=== PATIENT | male | born 1950 ===

== ENCOUNTER 2016-10-19 09:14 | Emergency (ER) | payer OTHER ==
[2016-10-19 09:49] VITALS: PULSE 98; TEMP 98
[2016-10-19 11:08] VITALS: BP 113/67; RESP 18; O2SAT 97
--- NOTE | 2016-10-19 11:58 | RAD ---
PROCEDURE: Radiographs of the Lumbar Spine. HISTORY: pain COMPARISON: None available FINDINGS: BONES: Mild scoliosis convex to the left. No acute displaced fracture identified. Degenerative changes including anterior osteophyte formation. DISC SPACES: Intervertebral disc space narrowing of L4-L5 and L5-S1. OTHER FINDINGS: None. IMPRESSION: Degenerative changes. Mild scoliosis. Cross-sectional imaging may be considered for further evaluation.
--- NOTE | 2016-10-19 12:25 | ED PDOC ---
Arrival/HPI - General Chief Complaint: Back Pain Time Seen by Provider: 10/19/16 09:56 Historian: Patient - History of Present Illness Narrative History of Present Illness (Text): 10/19/16 12:22 Patient past medical history of chronic low back pain, reports 5 day h/o pain in the lower back radiating to bilateral legs, beginning while he was at work and he stood up from a squatting position. States that the back pain is associated with numbness to the right lower leg. Has been taking over-the- counter Motrin with no improvement of symptoms prompting ER visit. Otherwise: ( -) trauma, (-) fall, (-) acute bowel or bladder dysfunction, (-) fever. Has history of prior back problem. PMD in [place] Past Medical History - Provider Review Nursing Documentation Reviewed: Yes - Cardiac Hx Hypertension: Yes - HEENT Hx HEENT Disorder: No - Renal Hx Renal Disorder: No Other/Comment: PROSTATE PROBLEM - Psychiatric Hx Substance Use: No Family/Social History - Physician Review Nursing Documentation Reviewed: Yes Family/Social History: No Known Family HX Smoking Status: Current Some Days Smoker Hx Alcohol Use: Yes Frequency of alcohol use: Daily Hx Substance Use: No Allergies/Home Meds Allergies/Adverse Reactions: Allergies No Known Allergies Allergy (Verified 10/19/16 09:48) Home Medications: Home Meds Medication Instructions Recorded Confirmed Amlodipine/Valsartan 10/19/16 [Amlodipine-Valsartan 5-160 mg] Review of Systems - Review of Systems Constitutional: Normal. absent: Fatigue, Weight Change, Fevers Respiratory: Normal. absent: SOB, Cough Cardiovascular: Normal. absent: Chest Pain, Palpitations Gastrointestinal: Normal. absent: Abdominal Pain, Stool Changes Musculoskeletal: Normal, Back Pain. absent: Arthralgias Skin: Normal. absent: Rash, Pruritis, Skin Lesions Physical Exam - Physical Exam Narrative Physical Exam (Text): 10/19/16 12:24 GENERAL APPEARANCE: Patient is awake, alert, oriented x 3, in mild painful distress. SKIN: Warm, dry; (-) cyanosis. EYES: (-) conjunctival pallor. ENMT: Mucous membranes moist. NECK: (-) tenderness, (-) stiffness, (-) lymphadenopathy. CHEST AND RESPIRATORY: (-) rales, (-) rhonchi, (-) wheezes; breath sounds equal bilaterally. HEART AND CARDIOVASCULAR: (-) irregularity; (-) murmur, (-) gallop. ABDOMEN AND GI: Soft; (-) tenderness; (-) palpable mass. BACK: (+) Point tenderness to the right paralumbar area, (-) spasm, (-) direct bony tenderness, (-) deformity. Straight leg raising (-) bilaterally. EXTREMITIES: (-) deformity. Distal pulses good bilaterally. NEURO AND PSYCH: Mental status as above. (+) Decrease in sensation noted to the lower aspect of the right leg, otherwise intact sensation bilaterally; normal strength in extension of the knees, plantar and dorsiflexion of the toes. DTRs symmetric. Vital Signs Temp Pulse Resp BP Pulse Ox 10/19/16 11:08 98 H 18 113/67 97 10/19/16 09:41 98 F 98 H 20 111/69 98 Medical Decision Making ED Course and Treatment: 10/19/16 12:25 65 yo M with past medical history of chronic low back pain, presents with a five -day history of right lower back pain radiating to bilateral lower legs, symptoms are likely due to sciatica. X-ray of lumbar spine ordered. Patient medicated with tramadol po. XR lumbar spine: Mild DJD, decrease in joint space noted between L4-L5 and L5-S1 , no fracture, as read by PA Patient advised that official radiology read of XR is still pending and will call the patient if there is any discrepancy within 24 hours. X-ray results explained to the patient in great detail. On reevaluation, patient reports mild improvement of pain. Patient able to stand up and ambulate with a steady gait in the emergency room. Based on history, exam and diagnostic results plan will be for patient follow- up with PMD. Prescription provided. Patient states he fully agrees with and understands discharge instructions. States that he agrees with the plan and disposition. Verbalized and repeated discharge instructions and plan. I have given the patient opportunity to ask any additional questions. Follow up with primary care physician and referral provided in 1-2 days without fail. Advised to take medication as prescribed. Return to the emergency room at any time for any new or worsening symptoms. 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 Disposition/Present on Arrival - Present on Arrival Any Indicators Present on Arrival: No History of DVT/PE: No History of Uncontrolled Diabetes: No Urinary Catheter: No History of Decub. Ulcer: No History Surgical Site Infection Following: None - Disposition Have Diagnosis and Disposition been Completed?: Yes Diagnosis: Sciatica Disposition: HOME/ ROUTINE Disposition Time: 12:00 Patient Plan: Discharge Condition: GOOD Discharge Instructions (ExitCare): Sciatica (ED) Print Language: CHILEAN Additional Instructions: Thank you for letting us take care of you today. You were treated for sciatica. The emergency medical care you received today was directed at your acute symptoms. If you were prescribed any medication, please fill it and take as directed. It may take several days for your symptoms to resolve. Return to the Emergency Department if your symptoms worsen, do not improve, or if you have any other problems. Please contact your doctor in 2 days for re-evaluation and follow up. Bring any paperwork you were given at discharge with you along with any medications you are taking to your follow up visit. Our treatment cannot replace ongoing medical care by a primary care provider (PCP) outside of the emergency department. Thank you for allowing the Critical access hospital team to be part of your care today. If you had an X-Ray : A Radiologist will review the ED reading if any change in treatment is needed we will contact you. Prescriptions: Cyclobenzaprine [Cyclobenzaprine HCl] 10 mg PO TID #15 tab Naproxen 500 mg PO BID #30 tab traMADol [Ultram] 50 mg PO TID #15 tab Referrals: [facility] Risa Barajas, [Primary Care Provider] - Follow up with primary Eugenio Smith III, MD [Medical Doctor] - Follow up with primary Abe Negron MD [Staff Provider] - Follow up with primary Forms: WORK NOTE
== END 2016-10-19 12:44 | disposition home or self-care (01) ==
LOC: ED 09:14
DX: M54.30 Sciatica, unspecified side (principal)

== ENCOUNTER 2017-08-20 15:29 | Inpatient (IN) | payer OTHER ==
[2017-08-20 15:30] VITALS: BMI 18.6
[2017-08-20 17:24] LABS: BASO # 0.03 K/mm3 (0.0-2.0); BASO % 0.3 % (0.0-3.0); EOS # 0.1 (0.0-0.7); GRAN # 10.13 (1.4-6.5); GRAN % 84.8 % (50.0-68.0); HEMOGLOBIN 12.2 g/dL (14.0-18.0); LYMPH # 1.1 (1.2-3.4); LYMPH % 9.2 % (22.0-35.0); MEAN CELL VOLUME 93.3 fl (80.0-105.0); MEAN CORPUSCULAR HEMOGLOBIN 30.3 pg (25.0-35.0); MEAN CORPUSCULAR HGB CONC 32.5 g/dl (31.0-37.0); MEAN PLATELET VOLUME 10.1 fl (7.0-11.0); MONO # 0.6 (0.1-0.6); MONO % 4.7 % (1.0-6.0); RBC 4.02 10^6/uL (3.5-6.1); RED CELL DISTRIBUTION WIDTH 13.9 % (11.5-14.5); WHITE BLOOD COUNT 11.9 10^3/ul (4.5-11.0)
[2017-08-20 17:27] LABS: ALB/GLOB RATIO 1.2 (1.1-1.8); ALBUMIN 4.2 g/dL (3.0-4.8)
--- NOTE | 2017-08-20 17:34 | CT ---
PROCEDURE: CT HEAD WITHOUT CONTRAST. HISTORY: headache, syncope COMPARISON: None available. TECHNIQUE: Axial computed tomography images were obtained through the head/brain without intravenous contrast. Radiation dose: Total exam DLP = 841.35 mGy-cm. This CT exam was performed using one or more of the following dose reduction techniques: Automated exposure control, adjustment of the mA and/or kV according to patient size, and/or use of iterative reconstruction technique. FINDINGS: HEMORRHAGE: No intracranial hemorrhage. BRAIN: No mass effect or edema. No atrophy or chronic microvascular ischemic changes. VENTRICLES: Unremarkable. No hydrocephalus. CALVARIUM: Unremarkable. PARANASAL SINUSES: Unremarkable as visualized. No significant inflammatory changes. MASTOID AIR CELLS: Unremarkable as visualized. No inflammatory changes. OTHER FINDINGS: None. IMPRESSION: No evidence of acute intracranial hemorrhage intracranial collection mass effect or midline shift.
[2017-08-20 17:36] LABS: INR 1.16 (0.93-1.08); PARTIAL THROMBOPLASTIN TIME 26.4 Seconds (25.1-36.5); PROTHROMBIN TIME 13.3 SECONDS (9.4-12.5)
--- NOTE | 2017-08-20 17:38 | ED PDOC ---
Arrival/HPI - General Chief Complaint: Dizziness/Lightheaded Time Seen by Provider: 08/20/17 15:35 Historian: Patient - History of Present Illness Narrative History of Present Illness (Text): 08/20/17 19:25 Patient is a 66 yo male recently discharged from hospital yesterday for renal failure, presents to ED stating that today he went to restaurant and felt dizzy and "pale". He went to bathroom and "felt dizzy and passed out for a few seconds ". He states that he continued to feel dizzy with a posterior headache " in my cerebellum". Not worst headache in life. No visual symptoms. He denies chest pain on initial evaluation. States he has left sided lower back pain but has had this for several weeks. Denies any pleuritic discomfort or leg pain or swelling. Time/Duration: Prior to Arrival Past Medical History - Infectious Disease Hx of Infectious Diseases: None - Cardiac Hx Cardiac Disorders: Yes Hx Hypertension: Yes - HEENT Hx HEENT Disorder: No - Renal Hx Renal Disorder: No Other/Comment: PROSTATE PROBLEM - Musculoskeletal/Rheumatological Hx Back Pain: Yes Hx Herniated Disk: Yes - Gastrointestinal Hx Gall Bladder Disease: Yes - Genitourinary/Gynecological Hx Prostate Problems: Yes - Psychiatric Hx Substance Use: No - Anesthesia Hx Anesthesia: Yes Hx Anesthesia Reactions: No Hx Malignant Hyperthermia: No Family/Social History Smoking Status: Former Smoker Hx Alcohol Use: No Hx Substance Use: No Allergies/Home Meds Allergies/Adverse Reactions: Allergies No Known Allergies Allergy (Verified 08/20/17 16:21) Review of Systems - Review of Systems Constitutional: absent: Fatigue, Fevers ENT: absent: Hearing Changes Respiratory: absent: SOB Cardiovascular: Syncope. absent: Chest Pain Gastrointestinal: absent: Abdominal Pain Genitourinary Male: Urinary Output Changes. absent: Dysuria Musculoskeletal: Back Pain. absent: Neck Pain Skin: absent: Rash Neurological: Dizziness. absent: Focal Weakness, Gait Changes, Seizure Endocrine: absent: Polyuria Hemo/Lymphatic: absent: Easy Bleeding Psychiatric: absent: Depression Physical Exam - Physical Exam Narrative Physical Exam (Text): Head: Atraumatic. Normocephalic. Eyes: PERRL. EOMI. Conjunctivae are not pale. ENT: Mucous membranes are moist and intact. Oropharynx is clear and symmetric. Neck: Supple. Full ROM. No JVD. No lymphadenopathy. Cardiovascular: Regular rate. Regular rhythm. No murmurs, rubs, or gallops. Distal pulses are 2+ and symmetric. Pulmonary/Chest: No evidence of respiratory distress. Clear to auscultation bilaterally. No wheezing, rales or rhonchi. Abdominal: Soft and non-distended. There is no tenderness. No rebound, guarding, or rigidity. No organomegaly. Good bowel sounds. Back: No CVA tenderness. Paraspinal lower lumbar pain on palpation, no edema or erythema noted. Extremities: No edema. No cyanosis. No clubbing. Full range of motion in all extremities. No calf tenderness. No calf edema or swelling. Skin: Skin is warm and dry. No petechiae. No purpura. Neurological: Alert, awake, and oriented to person, place, time, and situation. Normal speech. Motor and sensory exam intact. Psychiatric: Good eye contact. Normal interaction, affect, and behavior. 08/20/17 19:54 Vital Signs Reviewed: Yes Vital Signs Temp Pulse Resp BP Pulse Ox 08/20/17 19:00 77 18 110/56 L 95 08/20/17 16:22 80 18 119/50 L 95 08/20/17 16:13 97.6 F 116 H 19 111/72 94 L Temperature: Afebrile Pulse: Tachycardic Appearance: Positive for: Non-Toxic Pain Distress: Mild Mental Status: Positive for: Alert and Oriented X 3 Medical Decision Making ED Course and Treatment: Patient on initial examination complains of headache with brief syncopal episode. Not worst headache in life. Neuro exam intact, ct head ordered: Report Date : 08/20/2017 17:33:30 PROCEDURE: CT HEAD WITHOUT CONTRAST. Dictator : Uche Puente MD IMPRESSION: No evidence of acute intracranial hemorrhage intracranial collection mass effect or midline shift. Report Date : 08/20/2017 18:22:02 Procedure: Chest xray Dictator : Yesenia De Anda MD IMPRESSION: No focal consolidation, significant pleural effusion, or definite pneumothorax identified. Patient's recent admission reviewed. Recent echo reviewed. Creatinine noted to be 1.8, unchanged from previous. He states that urinary pozo catheter has been draining well with no hematuria or acute pain noted. Troponin elevated. He was re-examined and states he has not had any chest pain but "had chest pressure earlier". Denies any chest discomfort currently. He was again interviewed. Denies pleuritic pain or shortness of breath. He now states however, that at times he feels short of breath when ambulating. No calf pain noted. He is not hypoxic. On re-exam no tachycardia. Patient states that "I was told my brother had a heart attack but I don't talk to him". He states that he believes his mother might had "heart problems." Aspirin ordered. I discussed labs and troponin and symptoms with PMD Dr. Tripp, after reviewing case Lovenox was ordered, risks and side effects reviewed. He was re-evaluated and continues to deny any chest discomfort of shortness of breath currently. Will consult cardiology, and neurology. He has no focal neurologic deficits on exam. 08/20/17 19:56 - Lab Interpretations Lab Results: 08/20/17 14:35 08/20/17 14:35 Lab Results 08/20/17 18:20: Urine Color Yellow, Urine Appearance Turbid, Urine pH 6.0, Ur Specific [place] 1.025, Urine Protein >=300 H, Urine Glucose (UA) Negative, Urine Ketones Negative, Urine Blood Large H, Urine Nitrate Negative, Urine Bilirubin Negative, Urine Urobilinogen 0.2, Ur Leukocyte Esterase Moderate H, Urine RBC Tntc, Urine WBC 25 - 30, Urine Bacteria Few 08/20/17 14:35: Sodium 142, Potassium 4.2, Chloride 99, Carbon Dioxide 27, Anion Gap 20, BUN 35 H, Creatinine 1.8 H, Est GFR ( Amer) 46, Est GFR ( Non-Af Amer) 38, Random Glucose 149 H, Calcium 10.0, Total Bilirubin 0.5, AST 23 , ALT 25, Alkaline Phosphatase 68, Lactate Dehydrogenase 408, Total Creatine Kinase 64, Troponin I 0.15 H*, Total Protein 7.6, Albumin 4.2, Globulin 3.5, Albumin/Globulin Ratio 1.2 08/20/17 14:35: PT 13.3 H, INR 1.16 H, APTT 26.4 08/20/17 14:35: WBC 11.9 H, RBC 4.02, Hgb 12.2 L, Hct 37.5 L, MCV 93.3, MCH 30.3 , MCHC 32.5, RDW 13.9, Plt Count 379, MPV 10.1, Gran % 84.8 H, Lymph % (Auto) 9.2 L, Arroyo % (Auto) 4.7, Eos % (Auto) 1.0 L, Baso % (Auto) 0.3, Gran # 10.13 H , Lymph # (Auto) 1.1 L, Arroyo # (Auto) 0.6, Eos # (Auto) 0.1, Baso # (Auto) 0.03 - RAD Interpretation Radiology Orders: 08/20/17 16:22 HEAD W/O CONTRAST [CT] Stat CHEST ONE VIEW [RAD] Stat - EKG Interpretation EKG Interpretation (Text): 08/20/17 19:55 EKG at 16:37 reveals normal sinus rhythm left ventricular hypertrophy Interpreted by ED Physician: Yes Type: 12 lead EKG Comparison: Com.w/previous EKG - Medication Orders Current Medication Orders: Discontinued Medications Aspirin (Aspirin Chewable) 81 mg PO STAT STA Stop: 08/20/17 18:12 Last Admin: 08/20/17 19:08 Dose: 81 mg Enoxaparin Sodium (Lovenox) 60 mg SC STAT STA PRN Reason: Protocol Stop: 08/20/17 18:32 Last Admin: 08/20/17 19:09 Dose: 60 mg Subcutaneous Administrations Document 08/20/17 19:09 NYLA (Rec: 08/20/17 19:09 NYLA [id number]) Injection Site MAR Injection Site Left Abdomen Charges for Administration # of Subcutaneous Administrations 1 Disposition/Present on Arrival - Present on Arrival Any Indicators Present on Arrival: No History of DVT/PE: No History of Uncontrolled Diabetes: No Urinary Catheter: No History of Decub. Ulcer: No History Surgical Site Infection Following: None - Disposition Have Diagnosis and Disposition been Completed?: Yes Diagnosis: Elevated troponin, Syncope Disposition: HOSPITALIZED Disposition Time: 18:00 Patient Plan: Admission, Telemetry Condition: SERIOUS
--- NOTE | 2017-08-20 18:23 | RAD ---
HISTORY: syncope COMPARISON: Chest x-ray performed 08/16/17 TECHNIQUE: Chest, one view. FINDINGS: LUNGS: No focal consolidation. Please note that chest x-ray has limited sensitivity for the detection of pulmonary masses. PLEURA: No significant pleural effusion identified. No definite pneumothorax . CARDIOVASCULAR: Heart size appears within normal limits. OSSEOUS STRUCTURES: Degenerative changes. VISUALIZED UPPER ABDOMEN: Unremarkable. OTHER FINDINGS: None. IMPRESSION: No focal consolidation, significant pleural effusion, or definite pneumothorax identified.
[2017-08-20 18:28] LABS: URINE BILIRUBIN NEGATIVE (NEGATIVE); URINE BLOOD LARGE (NEGATIVE); URINE GLUCOSE (UA) NEGATIVE (NEGATIVE); URINE LEUKOCYTE ESTERASE MODERATE Leu/uL (NEGATIVE); URINE NITRATE NEGATIVE (NEGATIVE); URINE PROTEIN >=300 mg/dL (<30 mg/dL); URINE UROBILINOGEN 0.2 E.U./dL (<1 E.U./dL)
[2017-08-20 18:29] LABS: URINE APPEARANCE TURBID (CLEAR); URINE COLOR YELLOW (YELLOW)
[2017-08-20 18:30] LABS: TROPONIN I 0.15 ng/mL
[2017-08-20 18:31] LABS: URINE BACTERIA FEW (NEG); URINE RBC TNTC /hpf (0-2); URINE WBC 25 - 30 /hpf (0-6)
[2017-08-20] MEDS ORDERED: Enoxaparin 60 mg Syringe SC STA (18:31)
[2017-08-20] MEDS: Magnesium Oxide 400 mg Tab UD PO SCH (20:33)
[2017-08-20] MEDS: Sodium Chloride 0.9% 1,000 ML IV SCH (20:39)
--- NOTE | 2017-08-20 21:15 | CP.PCM.HP ---
History of Present Illness - History of Present Illness History of Present Illness: Mr. Nathan is a 66 year old male with past medical history significant for enlarged prostate and HTN who presents with one day of intermittent episodes of dizziness, diaphoresis and weakness. Patient reports that earlier today, he was getting ready to shower and he suddenly felt weak, dizzy and SOB that resolved with rest after several seconds. He reports that a similar episode happened both during his shower and twice later on throughout the day. He called his PMD' s office to schedule an appointment but was told to be evaluated in the ER. Patient denies ever having experienced this before. He denies any association with exertion, food intake or positional changes but does report that lying down relieves the symptoms. Of note, patient was discharged from [facility] [place], where he was admitted for urinary retention. Patient denies fever, chills, headache, changes in his vision, chest pain, palpitations, cough, wheezing, hemoptysis, abdominal pain, nausea, vomiting, diarrhea, constipation, burning/ pain with urination, calf pain, LE edema, numbness/tingling/weakness of any extremity or any skin changes. PMH: Enlarged prostate and HTN PSH: hernia repair Family History: Father-Prostate Cancer Social History: Former smoker with 50 pack year smoking history (quit two weeks ago); Denies alcohol or illicit drug use Allergies: NKDA Home Medications: As per MAR Present on Admission - Present on Admission Any Indicators Present on Admission: Yes Urinary Catheter: Yes Review of Systems - Review of Systems Review of Systems: As per HPI, otherwise negative Past Patient History - Infectious Disease Hx of Infectious Diseases: None - Past Social History Smoking Status: Former Smoker - CARDIAC Hx Cardiac Disorders: Yes Hx Hypertension: Yes - HEENT Hx HEENT Problems: No - RENAL Hx Chronic Kidney Disease: No Other/Comment: PROSTATE PROBLEM - MUSCULOSKELETAL/RHEUMATOLOGICAL Hx Back Pain: Yes Hx Herniated Disk: Yes - GASTROINTESTINAL Hx Gall Bladder Disease: Yes - GENITOURINARY/GYNECOLOGICAL Hx Prostate Problems: Yes - PSYCHIATRIC Hx Substance Use: No - SURGICAL HISTORY Hx Herniorrhaphy: Yes - ANESTHESIA Hx Anesthesia: Yes Hx Anesthesia Reactions: No Hx Malignant Hyperthermia: No Meds Allergies/Adverse Reactions: Allergies Allergy/AdvReac Type Severity Reaction Status Date / Time No Known Allergies Allergy Verified 08/20/17 16:21 Physical Exam - Constitutional Appears: Non-toxic, No Acute Distress - Head Exam Head Exam: ATRAUMATIC, NORMAL INSPECTION, NORMOCEPHALIC - Eye Exam Eye Exam: EOMI, Normal appearance, PERRL - ENT Exam ENT Exam: Mucous Membranes Moist, Normal Exam - Neck Exam Neck exam: Positive for: Normal Inspection - Respiratory Exam Respiratory Exam: Clear to Auscultation Bilateral, NORMAL BREATHING PATTERN. absent: Accessory Muscle Use, Chest Wall Tenderness, Decreased Breath Sounds, Prolonged Expiratory Phase, Rales, Rhonchi, Wheezes, Respiratory Distress, Stridor - Cardiovascular Exam Cardiovascular Exam: REGULAR RHYTHM, RRR, +S1, +S2 - GI/Abdominal Exam GI & Abdominal Exam: Normal Bowel Sounds, Soft. absent: Bruit, Diminished Bowel Sounds, Distended, Firm, Guarding, Hernia, Hyperactive Bowel Sounds, Hypoactive Bowel Sounds, Mass, Organomegaly, Pulsatile Mass, Rebound, Rigid, Tenderness - Extremities Exam Extremities exam: Positive for: full ROM, normal capillary refill, normal inspection, pedal pulses present. Negative for: calf tenderness, joint swelling , pedal edema, tenderness - Back Exam Back exam: NORMAL INSPECTION. absent: CVA tenderness (L), CVA tenderness (R) - Neurological Exam Neurological exam: Alert, CN II-XII Intact, Normal Gait, Oriented x3, Reflexes Normal - Psychiatric Exam Psychiatric exam: Normal Affect, Normal Mood - Skin Skin Exam: Dry, Intact, Normal Color, Warm Results - Vital Signs Recent Vital Signs: Last Vital Signs Temp 97.6 F 08/20/17 16:13 Pulse 77 08/20/17 19:00 Resp 18 08/20/17 19:00 BP 110/56 L 08/20/17 19:00 Pulse Ox 95 08/20/17 19:00 - Labs Result Diagrams: 08/20/17 14:35 08/20/17 14:35 Assessment & Plan - Assessment and Plan (Free Text) Assessment: 66 year old male with past medical history significant for enlarged prostate and HTN who presents with one day of intermittent episodes of dizziness, diaphoresis and weakness. Patient reports that earlier today, he was getting ready to shower and he suddenly felt weak, dizzy and SOB that resolved with rest after several seconds. Plan: 1. Pre-Syncope -CT Head was negative for any acute intracranial abnormalities -Chest X-Ray showed no active pulmonary disease -EKG showed normal sinus rhythm left ventricular hypertrophy -Recent Echo showed LVEF of 55% with normal size LV -Troponin elevated at 0.15 with serial troponins pending -Carotid Duplex, EEG and MRA Head pending -Thyroid Profile, Folate, B12, A1c, Vitamin D, UDS, Lyme serology and RPR pending -Normal Saline at 100mls/hr -ASA 325mg daily -Cario and Neuro consulted, all recommendations appreciated 2. UTI -UA showed moderate LE, negative nitrate, 25-30 WBC's and few bacteria -Cefepime 1gm IVPB Q12 3. History of Urinary Retention -Continue home Flomax GI Prophylaxis: Protonix DVT Prophylaxis: Heparin Patient seen and case discussed with attending, Dr. Tripp. - Date & Time Date: 08/20/17 Time: 21:17
[2017-08-20 21:24] LABS: FREE T4 1.26 ng/dL (0.78-2.19); T4 8.3 ug/dL (5.5-11.0)
[2017-08-20 21:44] LABS: TROPONIN I 0.17 ng/mL
--- NOTE | 2017-08-20 21:56 | CARD ---
APPROVED REPORT EKG Measurement Heart [id number] <Conclusion> Normal sinus rhythm Possible Left atrial enlargement RSR' or QR pattern in V1 suggests right ventricular conduction delay Left ventricular hypertrophy Abnormal ECG
[2017-08-20] MEDS: Aspirin 325 mg EC Tablets PO SCH (22:54)
[2017-08-20] MEDS: Cefepime 1gm in NS 100ml 1 GM/100 ML BAG IVPB SCH (22:54)
[2017-08-21 01:38] LABS: TROPONIN I 0.17 ng/mL
[2017-08-21 04:35] LABS: BASO # 0.06 K/mm3 (0.0-2.0); BASO % 0.6 % (0.0-3.0); EOS # 0.7 (0.0-0.7); EOS % 6.2 % (1.5-5.0); GRAN # 6.46 (1.4-6.5); GRAN % 60.1 % (50.0-68.0); HEMOGLOBIN 10.5 g/dL (14.0-18.0); LYMPH # 2.7 (1.2-3.4); MEAN CELL VOLUME 93.1 fl (80.0-105.0); MEAN CORPUSCULAR HEMOGLOBIN 30.3 pg (25.0-35.0); MEAN CORPUSCULAR HGB CONC 32.6 g/dl (31.0-37.0); MEAN PLATELET VOLUME 9.7 fl (7.0-11.0); MONO # 0.9 (0.1-0.6); MONO % 8.1 % (1.0-6.0); RBC 3.46 10^6/uL (3.5-6.1); WHITE BLOOD COUNT 10.7 10^3/ul (4.5-11.0)
[2017-08-21 04:59] LABS: ALB/GLOB RATIO 1.1 (1.1-1.8); ALBUMIN 3.3 g/dL (3.0-4.8); BILIRUBIN,DIRECT 0.3 mg/dL (0.0-0.4); CALCIUM 9.1 mg/dL (8.4-10.5)
[2017-08-21] MEDS: Pantoprazole 20 mg EC Tab PO SCH ×2 (05:04→17:02)
[2017-08-21 05:30] LABS: TROPONIN I 0.15 ng/mL
--- NOTE | 2017-08-21 06:52 | HP ---
HISTORY OF PRESENT ILLNESS: The patient is a 66-year-old male who was discharged from [facility] yesterday after being admitted for acute renal failure, acute kidney injury, and obstructive uropathy, came back to the emergency room today. The patient was supposed to come to the office for a followup visit, but the patient called the office and the patient said that he is not feeling well and has been very dizzy and lightheaded and came to the emergency room as a walk-in. According to the ER physician, the patient reported to the ER physician that the patient went to the restaurant, felt dizzy, and became pale, and then went to the bathroom and felt dizzy and passed out for a few seconds. The patient stated that he continued to feel dizzy with headache in the back of the head. The patient denies any chest pain, but complains of back pain which has been there for many weeks. REVIEW OF SYSTEMS: A 13-system review was done, pertinent positives and negatives dictated above. CODE STATUS: Full code. LIVING WILL ADVANCE DIRECTIVE: None. ALLERGIES: None. HOME MEDICATIONS: As per the discharge medications of yesterday, which includes, hydralazine 25 mg four times a day, Flomax 0.4 mg daily, magnesium oxide 400 mg twice a day, Protonix 40 mg daily. SOCIAL HISTORY: Former smoker. Denies alcohol. Denies substance abuse. Denies drug use. Negative for communicable transmissible disease. FAMILY HISTORY: Positive for prostate problems. 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 PAST MEDICAL AND SURGICAL HISTORY: History of hypertension, history of lumbar herniated disc, back pain, history of right inguinal hernia surgery, history of prostate enlargement, history of abnormal prostate biopsy for which the patient was supposed to follow up with a neurologist in [facility] with regular prostate biopsy every 6 months to a year, the patient states that his last prostate biopsy was done few years ago, history of poor compliance, history of decreased body mass index, history of resolving acute kidney injury secondary to obstructive uropathy, history of bilateral hydronephrosis, hydroureter secondary to obstructive uropathy and secondary to prostatomegaly, history of sinus bradycardia, history of leukocytosis, history of granulocytosis, history of anemia, history of elevated erythrocyte sedimentation rate, history of hypomagnesemia, history of prediabetes with hemoglobin A1c of 6.2, history of elevated C-reactive protein, history of elevated PSA of greater than 11 and greater than 15, history of proteinuria, glycosuria, microscopic hematuria, pyuria, history of distal esophageal thickening- etiology undetermined, history of hiatal hernia, history of hyperphosphatemia, history of hypertensive cardiovascular disease, history of questionable benign prostatic hypertrophy versus possible prostate carcinoma - etiology undetermined, history of sinus bradycardia, anxiety disorder, constipation, history of borderline hyperkalemia, history of bacteriuria, history of left ventricle ejection fraction of 53%, history of concentric left ventricle hypertrophy, history of grade 3 reversible restrictive diastolic dysfunction, history of mildly dilated left atrium, history of aortic valve calcification and mild aortic regurgitation, history of moderate mitral regurgitation with thickened mitral valve, history of thickened tricuspid valve leaflet, history of degenerative joint disease on the bone scan, history of moderate increased L2 vertebral body uptake, L2 vertebral body increased signal intensity - probably representing vertebral hemangioma or Paget's disease, history of left paracentral disc protrusion at T12-L1, history of L2-L3 mild disc degeneration and disc bulge, history of L3-L4 facet arthropathy and disc bulge, history of L4-L5 disc bulge and disc degeneration and foraminal stenosis, history of L5-S1 disc degeneration, history of hepatic cyst versus hepatic hemangioma, [id number]-[id number] pelvicaliectasis, history of bilateral adrenal gland hypertrophy, history of distended urinary bladder with urinary retention, history of right posterior urinary bladder diverticulum, history of gait dysfunction, history of deconditioning, history of lumbar spine lytic and sclerotic lesions and left hip questionable sclerotic versus lytic lesion - etiology undetermined, negative MRI and negative bone scan, history of right hepatic cyst or hemangioma and left hepatic cyst or hemangioma, history of bilateral adrenal gland hypertrophy, history of left femoral head sclerotic focus, history of uncontrolled hypertension, history of hyperglycemia. PHYSICAL EXAMINATION: GENERAL: The patient was seen in stretcher #5 in the emergency room. The patient is lying in the bed. The patient is alert, awake, oriented x3. VITAL SIGNS: T-max 97.6-97.9, heart rate initially 116, down to 80, down to 77, blood pressure 111/72, 119/50, 110/56, 143/90, respiratory rate 18-20, O2 95-99%. Height is 5 feet 10 inches. Weight is 130. BMI is 19. HEENT: Head is normocephalic, atraumatic. HEENT examination shows pinkish pale conjunctivae, anicteric sclerae, dry oral mucosa. NECK: No audible carotid bruit. No neck rigidity. No jugular venous distention. CHEST: Kyphosis. LUNGS: No rales, crackles or wheezing. CARDIOVASCULAR: S1, S2, regular rhythm. Positive systolic murmur left sternal border, right second intercostal space, left second intercostal space. ABDOMEN: Soft. Positive bowel sounds. No hepatosplenomegaly noted. No guarding. No rigidity. No rebound tenderness. Positive suprapubic fullness noted. GENITALIA: Male. Positive Gustafson catheter noted. MUSCULOSKELETAL: Decreased muscle mass. Body mass index of 18.7. NEUROLOGIC: The patient is alert, awake, oriented x3, is able to move upper and lower extremities without assistance. Gait examination is not tested. VASCULAR: Palpable pulses. Plantars are downward. DTRs at 2+. Cranial nerves II-XII intact and limited. EXTREMITIES: Upper and lower extremity examination shows full range of motion. No spine tenderness noted. No costovertebral angle tenderness noted. The patient's gait examination reported by the nurses in the ER physician as normal. SKIN: Warm and dry. PSYCHIATRIC: Negative. DIAGNOSTICS: WBC 11.9, hemoglobin/hematocrit of 12.2/37.5, platelets 379. Granulocytes 85% segs. ESR is 45. PT/PTT 13.3/26.4. Sodium 142, potassium 4.2, chloride 99, CO2 of 27, anion gap 20, BUN 35, creatinine 1.8, GFR 46, glucose 149, calcium 10.0. LFTs are normal. Troponin is 0.15 and 0.17. TSH 0.72, T4 of 8.3. Urine pH 6.0, specific gravity 1.025, protein greater than 300, large blood, moderate leukocyte esterase, few bacteria, 25-30 wbc's. The patient was ordered orthostatic vital signs. Patient's lying blood pressure 143/90, heart rate 90. Sitting blood pressure 130/67, pulse 92. Standing blood pressure 130/60 with a drop of 13 mmHg of systolic and 30 mmHg of diastolic from lying to standing. CT of the head was reviewed, which was negative for any bleed or shift. Chest x-ray was reviewed, which shows degenerative joint disease of the bones and spine. EKG done in the emergency room today was also reviewed which shows sinus rhythm, left anterior hemiblock with right ventricular conduction delay and left ventricular hypertrophy with RSR prime pattern in V1-V2; questionable incomplete right bundle-branch block. The patient was seen in the emergency room by Dr. Shanda Aranda, the ER physician. The patient was evaluated in the emergency room. The patient was advised to be admitted to Telemetry for further management. IMPRESSION AND PLAN: A 66-year-old male who presented to the emergency room with symptoms of dizziness, lightheadedness and losing consciousness. 1. Syncope, etiology undetermined. 2. Hypotension and hypovolemia. 3. Questionable non-ST elevation myocardial infarction with elevated troponin. 4. Leukocytosis with granulocytosis. 5. Normocytic anemia. 6. Elevated erythrocyte sedimentation rate. 7. Resolving acute kidney injury secondary to obstructive uropathy. 8. Hyperglycemia. 9. Proteinuria, microscopic hematuria, pyuria, bacteriuria. 10. Degenerative joint disease. 11. Questionable incomplete right bundle-branch block versus right ventricular conduction delay. 12. Hypertensive cardiovascular disease. 13. Questionable left anterior hemiblock. 14. Urinary retention. 15. Questionable urinary tract infection with pyuria, bacteriuria, hematuria, proteinuria. 16. Questionable orthostatic hypotension with decreasing systolic blood pressure of 13 mmHg and the diastolic blood pressure of 30 mmHg. PLAN: At this time, the patient is to be admitted to Telemetry. The patient has been ordered hemoglobin A1c, B12, folate, vitamin D, thyroid panel, RPR, Lyme disease panel, CBC, CMP, LFT, magnesium has been ordered for the morning, serial troponins and CPK ordered, urine cultures ordered. Cardiology consultation and Neurology consultation ordered. RPR ordered. Current medications; aspirin 325 mg p.o. daily, Flomax 0.4 mg daily, heparin 5000 subcu q.8, the patient received Lovenox 60 mg x1 dose in the ER, magnesium oxide 400 twice a day. The patient was started on Maxipime 1 g IV q.12h. for possible urinary tract infection with proteinuria, pyuria, bacteriuria. The patient will be continued on Protonix 40 daily. The patient was started on IV fluid 0.9 normal saline at 100 mL an hour. Carotid Doppler, MRI of the brain, MRA of the brain without gadolinium ordered. EEG has been ordered. Repeat EKG has been ordered. Out of bed to chair with assistance. Seizure precaution, neuro checks ordered. SCDs, VIBHA stockings ordered. Occupational therapy, physical therapy ordered. The patient's orthostatic vital signs will be reviewed again in the morning, which has been ordered every 6 hours. At present, the patient is awaiting for a Telemetry bed. At present, the patient's further management will be dependent upon the patient's clinical condition, hemodynamic status and as per the patient response to therapeutic intervention, as per the patient's diagnostic test results, and as per recommendation by Neurology and Cardiology. Dictated and electronically signed, not read. Jef Tripp MD
[2017-08-21 07:21] LABS: BARBITURATES, UR NEGATIVE (NEGATIVE); BENZODIAZEPINES, UR NEGATIVE (NEGATIVE); OPIATES, UR NEGATIVE (NEGATIVE); PHENCYCLIDINE, UR NEGATIVE (NEGATIVE)
[2017-08-21 08:23] LABS: TROPONIN I 0.13 ng/mL
--- NOTE | 2017-08-21 08:29 | CON ---
DATE: 08/20/2017 NEUROLOGY CONSULTATION REASON FOR CONSULTATION: Episode of passing out. HISTORY OF PRESENT ILLNESS: The patient is a 66-year-old male, who has been asked for evaluation of episode of passing out. The patient was recently discharged from the hospital because of renal failure. This morning, patient when he woke up, felt a little dizzy. Restaurant He went to a restaurant where again he felt dizzy and pale. He went to the bathroom and passed out for few seconds. He did not have any urinary incontinence or tongue biting. He was also experiencing some headache, mostly in the back of the head. He denied any focal weakness in the arms or legs. He is not feeling hundred percent, according to him. He denies any other complaints. REVIEW OF SYSTEMS: He denies any chest pain, shortness of breath, abdominal pain, constipation, diarrhea, dysuria, cough or sputum production. PAST MEDICAL HISTORY: Includes hypertension. MEDICATIONS: Include hydralazine, Flomax, Protonix and magnesium. ALLERGIES: NO KNOWN DRUG ALLERGY. SOCIAL HISTORY: He is a former smoker. Denies use of alcohol or illicit drugs. FAMILY HISTORY: Reviewed and noncontributory to the case. PHYSICAL EXAMINATION: GENERAL: The patient is a middle-aged male, lying in the bed, in no acute distress. VITAL SIGNS: Blood pressure is 110/56, heart rate 77 per minute, breathing at the rate of 16 per minute, temperature 97.6 degrees Fahrenheit. HEENT: Head is normocephalic, atraumatic. NECK: Supple. There are no carotid bruits. LUNGS: Clear. CARDIOVASCULAR: S1 and S2 audible, no murmurs. ABDOMEN: Soft and nontender with bowel sounds present. NEUROLOGIC: Mental status: The patient is awake, alert, oriented to time, place, person. Speech is fluent. Naming and repetition are normal. Memory and cognition are intact. Cranial nerve examination: Pupils are 3 mm bilaterally and reactive to light. Visual myers are full. Extraocular movements are intact. There is no facial asymmetry. Palate is upgoing bilaterally and tongue is midline. Motor examination: Tone is normal. Power is 5/5 bilaterally in all extremities. Reflexes are +2 and symmetrical. Plantars are downgoing bilaterally. Cerebellar examination: [id number] shows no dysmetria. Gait is deferred at the moment. Sensory examination: Intact to soft touch and pinprick. LABORATORY DATA: Reviewed. Shows WBC of 11.9, hemoglobin 12.2, hematocrit of 37.5 and platelets of 379. Sodium is 142, potassium 4.2, chloride 99, carbon dioxide 27, BUN of 35, creatinine 1.8 and glucose of 149. He had a CT scan of the head done, which shows no acute intracranial abnormality. IMPRESSION: Syncope, rule out cardiac arrhythmias versus seizures. RECOMMENDATION: 1. The patient to have an electroencephalogram. 2. The patient to have cardiac monitoring to rule out any cardiac arrhythmias. 3. The patient to have an MRI of the brain without contrast. 4. Please continue supportive care and other treatment. Thank you for the opportunity to participate in the care of this patient. Gabriela Thomas MD
[2017-08-21] MEDS: Aspirin 325 mg EC Tablets PO SCH (09:06)
[2017-08-21] MEDS: Magnesium Oxide 400 mg Tab UD PO SCH ×2 (09:06→17:02)
[2017-08-21] MEDS: Cefepime 1gm in NS 100ml 1 GM/100 ML BAG IVPB SCH (09:06)
[2017-08-21] MEDS ORDERED: DiphenhydrAMINE 50 mg/ml Inj IVP ONE (11:11)
[2017-08-21] MEDS ORDERED: DiphenhydrAMINE 50 mg/ml Inj IM ONE (12:30)
[2017-08-21 14:05] LABS: FOLATE 6.2 ng/mL
--- NOTE | 2017-08-21 15:11 | MRI ---
PROCEDURE: MRI BRAIN WITHOUT CONTRAST HISTORY: SYNCOPE COMPARISON: None. TECHNIQUE: Multiplanar, multisequence MR images of the brain were obtained without intravenous contrast enhancement. FINDINGS: HEMORRHAGE: None DWI: No evidence of an acute or early subacute infarction. BRAIN PARENCHYMA: No mass effect or edema. No atrophy or chronic microvascular ischemic changes. VENTRICLES: Unremarkable. No hydrocephalus. CRANIUM: Unremarkable. ORBITS: Grossly unremarkable. PARANASAL SINUSES/MASTOIDS: Clear VASCULAR SYSTEM: Skull base flow voids intact. OTHER FINDINGS: None. IMPRESSION: Unremarkable non contrast enhanced MRI of the brain.
--- NOTE | 2017-08-21 15:12 | MRI ---
PROCEDURE: Magnetic Resonance Angiography Brain HISTORY: SYNCOPE COMPARISON: None available. TECHNIQUE: 3D time of flight MR angiography of the intracranial arteries was performed. Rotating maximum intensity projection images were generated. FINDINGS: INTERNAL CAROTID ARTERIES: Unremarkable. The skull base, petrous, cavernous and supraclinoid segments are bilaterally widely patient. ANTERIOR CEREBRAL ARTERIES: Unremarkable. A1 and A2 segments are widely patent. Smaller distal branches unremarkable, as visualized. MIDDLE CEREBRAL ARTERIES: Unremarkable. M1 and M2 segments are widely patent. Perisylvian branches grossly symmetric. POSTERIOR CIRCULATION: Basilar Artery: Unremarkable. Distal Vertebral Arteries: Unremarkable. Posterior Cerebral Arteries: Unremarkable. Posterior Inferior Cerebellar Arteries: Unremarkable. ANEURYSM/ VASCULAR MALFORMATIONS: None. OTHER FINDINGS: None. IMPRESSION: Unremarkable MR angiography of the brain.
--- NOTE | 2017-08-21 16:01 | CARD ---
APPROVED REPORT EKG Measurement Heart [id number] <Conclusion> Sinus bradycardia Moderate voltage criteria for LVH, may be normal variant Borderline ECG
--- NOTE | 2017-08-21 16:18 | PN ---
DATE: 08/21/2017 LOCATION: The patient is seen in room 272, bed 2. SUBJECTIVE: Overnight nurse's notes were reviewed. The patient stayed in the bed most of the time. The patient refused MRI. The patient was seen with the medical technicians. The patient was seen lying in the bed. Overnight nurse's notes were reviewed. PHYSICAL EXAMINATION: VITAL SIGNS: T-max 98.9. Telemetry monitoring shows sinus rhythm, heart rate in 70s and 80s; blood pressure 129/72, 138/72, 143/90, 110/56; respiration 19; O2 sat 97%. HEENT: Head examination normocephalic, atraumatic. HEENT examination shows pinkish pale conjunctivae. Dry oral mucosa. Positive facial muscle wasting. Positive bitemporal muscle wasting. LUNGS: Shows no rales, crackles or wheezing. CARDIOVASCULAR: Shows S1, S2, regular rhythm. Positive systolic murmur, left sternal border, left second intercostal space. ABDOMEN: Soft. Positive bowel sounds. No hepatosplenomegaly noted. No guarding. No rigidity. No rebound tenderness. GENITALIA: Male. RECTAL: Deferred. Positive Gustafson catheter, draining clear urine. MUSCULOSKELETAL: Shows a decreased muscle mass of 16.1. NEUROLOGIC: The patient is alert, awake, oriented x3. Appears to be anxious. Gait examination is not tested, but the patient is able to sit up from the lying position. VASCULAR: Palpable pulses. DIAGNOSTICS: On 08/21/2017, WBC 10.7, hemoglobin and hematocrit 10.5 and 32.2, platelets 307. ESR 45. Sodium 140, potassium 3.9, chloride 104, CO2 of 27, anion gap 13, BUN 36, creatinine 1.5, GFR 47, glucose 103, calcium 9.1, magnesium 2.0. LFTs are normal. Peak troponin is 0.17, down to 0.13. Cholesterol 131, LDL 71, HDL 41. Thyroid panel is negative. Urinalysis: Protein 300, large blood, moderate leukocyte, bacteria few. Urine drug screen is positive for cannabinoid, which the patient admits using. Carotid ultrasound done, report pending. EKG done today was reviewed. EKG shows sinus bradycardia, left ventricular hypertrophy. IMPRESSION AND PLAN: 1. Syncope, etiology undetermined. 2. Questionable orthostatic hypotension. 3. Status post fall. 4. Leukocytosis with granulocytosis. 5. Normocytic anemia. 6. Elevated erythrocyte sedimentation rate of 45. 7. Resolving acute kidney injury secondary to obstructive uropathy secondary to prostatomegaly. 8. Hyperglycemia. 9. Questionable [id number] myocardial infarction with elevated troponin. 10. Questionable urinary tract infection with proteinuria, hematuria, pyuria, bacteriuria. 11. Positive marijuana use with urine drug screen positive for cannabinoids. 12. Decreased body mass index. 13. Left ventricular hypertrophy. 14. Sinus bradycardia with left ventricular hypertrophy. 15. Questionable right ventricular conduction delay versus incomplete right bundle-branch block and left axis deviation. 16. Poor compliance and noncompliance. PLAN: At this time, the patient's B12, folate, hemoglobin A1c, vitamin D are pending. CMP, LFT, magnesium, troponin and other Lyme titers ordered. Repeat CBC ordered. Urine cultures pending. Current consultation, Cardiology, Neurology index. RPR pending. Current medications: The patient has been premedicated with Ativan 2 mg IM and Benadryl 50 mg IM prior to MRI. The patient is on aspirin 325 daily, Flomax 0.4 mg daily, heparin 5000 subcu q. 8. The patient is on magnesium oxide 400 twice a day, Cefepime 1 g IV q. 12, Protonix 40 mg daily. The patient is on 0.9 normal saline at 100 mL an hour. The patient is awaiting Cardiology evaluation. The patient is seen by Neurology, ordered MRI of the brain, MRA of the brain without contrast, carotid Doppler, EEG ordered. The patient is on regular diet. The patient has been advised out of bed, physical therapy, occupational therapy. The patient was also counseled about cessation of marijuana use. Dictated and electronically signed, not read. Signing off, Jef Tripp MD
[2017-08-21] MEDS: Sodium Chloride 0.9% 1,000 ML IV SCH (17:05)
--- NOTE | 2017-08-21 19:10 | US ---
PROCEDURE: Bilateral carotid artery duplex ultrasound HISTORY: Carotid stenosis syncope PHYSICIAN(S): Conner Choudhury MD. TECHNIQUE: Duplex sonography and color-flow Doppler were used to evaluate the carotid bifurcations and limited segments of the vertebral arteries bilaterally. FINDINGS: There is mild focal smooth heterogeneous plaque noted at the carotid bifurcations bilaterally. The peak systolic velocity in the proximal right internal carotid artery is 82 cm/sec. This corresponds to a 20 to 39% proximal right ICA stenosis. Normal systolic velocities are noted in the proximal right external carotid artery. There is antegrade flow in the right vertebral artery. The peak systolic velocity in the proximal left internal carotid artery is 89 cm/sec. This corresponds to a 20 to 39% proximal left ICA stenosis. Normal systolic velocities are noted in the proximal left external carotid artery. There is antegrade flow in the left vertebral artery. IMPRESSION: 1. Bilateral 20-39% proximal ICA stenoses. 2. Antegrade flow in both vertebral arteries.
--- NOTE | 2017-08-22 02:11 | CON ---
DATE: 08/21/2017 CARDIOLOGY CONSULTATION HISTORY OF PRESENT ILLNESS: The patient is a 66-year-old male who was discharged from the hospital yesterday, and he apparently felt dizzy and had a syncopal episode. He denies angina. The patient's cardiac risk factors includes history of three packs a day of cigarettes per day. In addition, he suffers from hypertension. No shortness of breath. No diabetes mellitus. No previous cardiac history. SOCIAL HISTORY: The patient is a is a long-time smoker. REVIEW OF SYSTEMS: The 14-point review of systems, the patient had urinary retention from an enlarged prostate, which was relieved with a Gustafson catheter. His renal function, which was abnormal, is slowly improving since relieving of his obstructive uropathy. PHYSICAL EXAMINATION: VITAL SIGNS: Blood pressure is 129/72, the heart rate is in the 80s. NECK: Negative JVD. LUNGS: Without rales. HEART: S1, S2. EXTREMITIES: Without edema. LABORATORY DATA: EKG shows nonspecific ST-T changes. Troponins peaked at 0.17 and is currently down to 0.10, creatinine is 1.5. IMPRESSION: 1. Non-ST elevation myocardial infarction. 2. High probability for coronary artery disease. 3. Coronary artery disease. 4. Renal insufficiency. 5. Chronic obstructive pulmonary disease. 6. Hypertension. 7. Renal insufficiency secondary to obstructive uropathy. PLAN: Given these findings, I have discussed with the patient in terms of risks and benefits of cardiac catheterization given his high probability for CAD. The patient refuses at this time. He understands the risk of myocardial infarction given his high probability. We will continue the patient on aspirin and start him on beta-blockers and statin therapy. We will have somebody come up and speak to him and go over cardiac catheterization in detail. Conner Arce MD
[2017-08-22] MEDS: Sodium Chloride 0.9% 1,000 ML IV SCH (03:59)
[2017-08-22] MEDS: Pantoprazole 20 mg EC Tab PO SCH (05:45)
[2017-08-22 06:55] LABS: TROPONIN I 0.05 ng/mL
[2017-08-22 07:09] LABS: BASO # 0.07 K/mm3 (0.0-2.0); BASO % 0.9 % (0.0-3.0); EOS # 0.6 (0.0-0.7); EOS % 7.1 % (1.5-5.0); GRAN # 4.63 (1.4-6.5); GRAN % 57.8 % (50.0-68.0); HEMOGLOBIN 9.7 g/dL (14.0-18.0); LYMPH # 2.1 (1.2-3.4); MEAN CELL VOLUME 94.7 fl (80.0-105.0); MEAN CORPUSCULAR HGB CONC 31.7 g/dl (31.0-37.0); MEAN PLATELET VOLUME 10.1 fl (7.0-11.0); MONO # 0.7 (0.1-0.6); MONO % 8.2 % (1.0-6.0); RBC 3.23 10^6/uL (3.5-6.1)
[2017-08-22 07:10] LABS: ALB/GLOB RATIO 1.1 (1.1-1.8); ALT/SGPT 23 U/L (7-56); AST/SGOT 19 U/L (17-59); BILIRUBIN,DIRECT 0.3 mg/dL (0.0-0.4); BLOOD UREA NITROGEN 25 mg/dL (7-21); GFR AFRICAN-AMERICAN > 60; GFR NON-AFRICAN AMERICAN 56; MAGNESIUM 1.7 mg/dL (1.7-2.2)
[2017-08-22] MEDS ORDERED: Ergocalciferol 50,000 Intl Units Cap PO SCH (07:45)
[2017-08-22 07:54] LABS: IRON 138 ug/dL (45-180)
[2017-08-22 08:05] LABS: % IRON SATURATION 64 % (20-55); TOTAL IRON BINDING CAPACITY 215 ug/dL (261-462)
[2017-08-22] MEDS ORDERED: Cefepime 1gm in NS 100ml 1 GM/100 ML BAG IVPB SCH (10:00)
[2017-08-22] MEDS ORDERED: Enoxaparin 60 mg Syringe SC SCH (10:00)
--- NOTE | 2017-08-22 10:25 | PN ---
DATE: NEUROLOGY PROGRESS NOTE SUBJECTIVE: The patient is lying on the bed, in no acute distress. Denies having any headache or dizziness. PHYSICAL EXAMINATION: VITAL SIGNS: Blood pressure is 126/84, heart rate is 58 per minute, he is breathing at the rate of 16 per minute and he is afebrile. HEENT: Head is normocephalic, atraumatic. NECK: Supple. There are no carotid bruits. LUNGS: Clear. CARDIOVASCULAR SYSTEM: S1 and S2 are audible. No murmurs. ABDOMEN: Soft and nontender. Bowel sounds are present. NEUROLOGY: Mental status: The patient is awake and alert, oriented to time, place and person. Speech is fluent. Naming and repetition normal. Memory and cognition are intact. Cranial nerve examination: Pupils are 3 mm, bilaterally reactive to light. Visual myers are full. Extraocular movements are intact. There is no facial asymmetry. Palate is upgoing bilaterally and tongue is midline. Motor examination: Tone is normal. Power is 5/5 bilaterally in all extremities. Reflexes are 1+ and symmetrical. Plantars downgoing bilaterally. LABORATORY DATA: Labs reviewed. MRI of the brain unremarkable. MRA of the brain unremarkable. EEG normal. IMPRESSION: Status post syncope. RECOMMENDATIONS: 1. The patient had no further episode of passing out. 2. The patient's cardiac monitoring did not reveal any significant cardiac arrhythmia. 3. The patient is neurologically stable for discharge. If the episode happen again or if there is of clinical concern, a prolonged EEG maybe done as outpatient. Thank you for the opportunity to participate in the care of this patient. Gabriela Thomas MD
[2017-08-22] MEDS: Aspirin 325 mg EC Tablets PO SCH (10:46)
[2017-08-22] MEDS: Magnesium Oxide 400 mg Tab UD PO SCH (10:47)
[2017-08-22 11:50] VITALS: O2SAT 98
[2017-08-22 12:02] VITALS: BP 133/82; PULSE 73; RESP 17; TEMP 98.5
--- NOTE | 2017-08-22 12:13 | PN ---
DATE: 08/22/2017 LOCATION: The patient was seen in room 272, bed 2. SUBJECTIVE: The patient was seen again lying in the bed. Overnight nurse's notes were reviewed. The patient was seen by Cardiology, Neurology. The patient was told about his diagnosis of [id number] myocardial infarction by Dr. Conner Arce also. I also explained to him yesterday. The patient was offered and advised cardiac catheterization, which he declined and refused. All the risks consequences was explained by the meat clerk and by me at length, but the patient categorically refused. The patient also has not undergone an MRI of the brain and MRA of the brain as of yet. The patient has been refusing until yesterday. PHYSICAL EXAMINATION: VITAL SIGNS: T-max 98.4; pulse 61-66, telemetry shows sinus rhythm; blood pressure 128/71, 128/74; respiration 20; O2 sat 97%. HEENT: Head examination normocephalic, atraumatic. HEENT examination shows pinkish pale conjunctivae. HEENT examination shows positive temporal and facial muscle wasting. The patient appears to be chronically ill appearing. NECK: No neck rigidity. No jugular venous distention. No audible carotid bruit. CHEST: Kyphosis. LUNGS: Shows no rales, crackles or wheezing. CARDIOVASCULAR: S1, S2. Regular rhythm. Questionable soft systolic murmur, left sternal border, right second intercostal space. ABDOMEN: Soft. Positive bowel sound. No hepatosplenomegaly noted. No guarding. No rigidity. No rebound tenderness. RECTAL: Deferred. GENITALIA: Male. Positive Gustafson catheter draining clear urine. VASCULAR: Palpable pulses. Plantars are downward. DTRs at 2+. MUSCULOSKELETAL: Shows decreased body mass index. Cranial nerves II through XII intact. DIAGNOSTICS: From 08/22/2017, troponin has come down to 0.05 from peak troponin of 0.17. Vitamin D is 24. CBC is not available as of yet. Chemistry shows sodium 145, potassium 4.2, chloride 107, CO2 of 28, BUN 25, creatinine 1.3, glucose 101, hemoglobin A1c 6.2. As mentioned, the patient has refused the MRI, MRA of the brain understanding all the consequences and risk of refusing the diagnostic therapeutic intervention. IMPRESSION AND PLAN: 1. Syncope, etiology undetermined. 2. Acute zab-[id number] myocardial infarction with elevated troponin. 3. History of marijuana and cannabinoids use. 4. Anemia, etiology undetermined. 5. History of hypertension. 6. Hypovitaminosis D. 7. Prediabetes with hemoglobin A1c of 6.2. 8. Normocytic anemia. 9. Elevated erythrocyte sedimentation rate of greater than 40. 10. Obstructive uropathy with acute renal failure secondary to severe prostatomegaly. 11. Acute kidney injury (resolved). 12. Hypertensive cardiovascular disease. 13. Decreased body mass index. 14. History of abnormal prostate biopsy. 15. History of poor compliance and noncompliance. PLAN: At this time, the patient is seen by Cardiology, Neurology. The patient's EEG, MRI results are still pending if the patient undergoes for it. If the patient continues to refuse the diagnostic testing and therapeutic intervention, the patient will be discharged. I have again explained to the patient about the risk and consequences of refusing diagnostic therapeutic intervention and not complying with physician's and nurse's recommendation. The patient was also advised to be out of bed to chair and ambulate on the floors. At this time, the patient will be continued on aspirin. The patient will be continued on Lipitor 40 mg daily, aspirin 81 mg daily. In addition, the patient has been started on beta xenia, Lopressor 25 twice a day by Dr. Conner Arce. The patient is to be continued on vitamin D 25, Drisdol 50,000 units weekly. The patient will be continued on indwelling Gustafson catheter with outpatient Urology followup. The patient will be continued on the medications as per the MAR of today. As mentioned, if the patient continues to refuse diagnostic therapeutic intervention, the patient will be considered for discharge very soon. Dictated and electronically signed, not read. Jef Tripp MD
--- NOTE | 2017-08-22 15:11 | PN ---
DATE: 08/22/2017 CARDIOLOGY FOLLOWUP SUBJECTIVE: The patient is chest pain-free. PHYSICAL EXAMINATION: VITAL SIGNS: Blood pressure is 137/85, heart rates in the 60s. NECK: Negative JVD. LUNGS: Without rales. HEART: S1, S2. EXTREMITIES: Without edema. LABORATORY DATA: Reveals troponins have gone from 0.10 down to 0.05. Hemoglobin is 9.7. IMPRESSION: 1. Jkj-BR-[id number] myocardial infarction. 2. High probability for coronary artery disease. 3. Renal insufficiency. 4. Chronic obstructive pulmonary disease. 5. Hypertension. The patient thought about catheterization and was asked again today. He refuses catheterization for now. He agrees only if they continue medical therapy. The patient is currently chest pain-free on aspirin, beta-blockers, and statin therapy. We will continue medical therapy without plans for cardiac catheterization since the patient refuses. We will discontinue telemetry today and continue medical therapy. Conner Arce MD
[2017-08-22 17:36] LABS: FOLATE 3.6 ng/mL
--- NOTE | 2017-08-22 18:09 | CARD ---
APPROVED REPORT EKG Measurement Heart [id number] <Conclusion> Normal sinus rhythm Voltage criteria for left ventricular hypertrophy Abnormal ECG
--- NOTE | 2017-08-23 06:32 | EEG ---
DATE: ELECTROENCEPHALOGRAM REPORT INTRODUCTION: This is a digitally recorded EEG monitoring using the standard EEG montages. BACKGROUND RHYTHM: The EEG shows a background activity of 8 to 9 Hz alpha activity in the parietooccipital region. The EEG activity is bilaterally symmetrical and synchronous. There is attenuation of the background activity on eye opening. No sleep recording was noted. ABNORMAL POTENTIALS: No spike, sharp waves or focal slowing was seen. PHOTIC STIMULATION AND HYPERVENTILATION: Photic stimulation did not reveal any abnormality. Hyperventilation was not performed. IMPRESSION: Normal electroencephalogram. No epileptiform activity is seen in this electroencephalogram recording. Gabriela Thomas MD
[2017-08-23 07:25] LABS: 23 KD (IGG) BAND Nonreactive
== END 2017-08-22 16:14 | disposition home or self-care (01) | DRG 281 ==
LOC: ED 15:29 → ERH 18:38 → 2RSO 23:24
PROVIDERS: ADMIT Internal Medicine; ATTEND Internal Medicine
DX: I21.4 Non-ST elevation (NSTEMI) myocardial infarction (principal); N39.0 Urinary tract infection, site not specified; N17.9 Acute kidney failure, unspecified; I11.9 Hypertensive heart disease without heart failure; N13.9 Obstructive and reflux uropathy, unspecified; N40.1 Benign prostatic hyperplasia with lower urinary tract symptoms; J44.9 Chronic obstructive pulmonary disease, unspecified; I25.10 Atherosclerotic heart disease of native coronary artery without angina pectoris; E55.9 Vitamin D deficiency, unspecified; D64.9 Anemia, unspecified; R73.03 Prediabetes; F17.210 Nicotine dependence, cigarettes, uncomplicated; F12.90 Cannabis use, unspecified, uncomplicated; M19.90 Unspecified osteoarthritis, unspecified site; Z91.19 Patient's noncompliance with other medical treatment and regimen

== ENCOUNTER 2017-09-12 12:01 | Emergency (ER) | payer OTHER ==
[2017-09-12 12:02] VITALS: BMI 18.6
[2017-09-12 12:42] VITALS: TEMP 99.8; O2SAT 98
--- NOTE | 2017-09-12 13:45 | ED PDOC ---
Arrival/HPI - General Chief Complaint: Male Genitourinary Time Seen by Provider: 09/12/17 12:15 Historian: Patient - History of Present Illness Narrative History of Present Illness (Text): 09/12/17 13:30 66 year old male, whose past medical history includes hypertension, gall bladder disease, and prostate enlargement, who presents to the emergency department complaining of urinary output changes. Patient reports he is urinating less than usual and states having a full bladder. He notes one day ago going to see Dr. Armenta where they removed a pozo and tried voiding but was not able to urinate much. He c/o suprspubic pain and chills. Patient denies chest pain, shortness of breath, hematuria, back pain, nausea, vomiting, or other complaints. PMD: Dr. Tripp Time/Duration: < week Symptom Onset: Sudden Symptom Course: Unchanged Past Medical History - Provider Review Nursing Documentation Reviewed: Yes - Infectious Disease Hx of Infectious Diseases: None - Cardiac Hx Cardiac Disorders: Yes Hx Hypertension: Yes - Pulmonary Hx Respiratory Disorders: No - Neurological Hx Neurological Disorder: No - HEENT Hx HEENT Disorder: No - Renal Hx Renal Disorder: No Other/Comment: PROSTATE PROBLEM - Hematological/Oncological Hx Blood Disorders: No - Musculoskeletal/Rheumatological Hx Back Pain: Yes Hx Herniated Disk: Yes - Gastrointestinal Hx Gall Bladder Disease: Yes - Genitourinary/Gynecological Hx Prostate Problems: Yes - Psychiatric Hx Substance Use: No - Surgical History Hx Inguinal Hernia Repair: Yes - Anesthesia Hx Anesthesia: Yes Hx Anesthesia Reactions: No Hx Malignant Hyperthermia: No Family/Social History - Physician Review Nursing Documentation Reviewed: Yes Family/Social History: Unknown Family HX Smoking Status: Former Smoker Hx Alcohol Use: No Hx Substance Use: No Allergies/Home Meds Allergies/Adverse Reactions: Allergies No Known Allergies Allergy (Verified 09/12/17 12:42) Review of Systems - Review of Systems Constitutional: absent: Fatigue ENT: absent: Sore Throat Respiratory: absent: SOB Cardiovascular: absent: Chest Pain Gastrointestinal: Abdominal Pain (suprapubic pain) Genitourinary Male: Urinary Output Changes. absent: Dysuria, Hematuria Musculoskeletal: absent: Back Pain Skin: absent: Rash Neurological: absent: Headache Endocrine: Diaphoresis Physical Exam Vital Signs Reviewed: Yes Vital Signs Temp Pulse Resp BP Pulse Ox 09/12/17 14:31 68 15 155/69 H 98 09/12/17 12:37 99.8 F H 108 H 18 227/75 H 98 Temperature: Afebrile Blood Pressure: Hypertensive Pulse: Tachycardic Respiratory Rate: Normal Appearance: Positive for: Well-Appearing, Non-Toxic, Comfortable Pain Distress: None Mental Status: Positive for: Alert and Oriented X 3 - Systems Exam Head: Present: Atraumatic, Normocephalic Pupils: Present: PERRL Extroacular Muscles: Present: EOMI Conjunctiva: Present: Normal Respiratory/Chest: Present: Clear to Auscultation, Good Air Exchange. No: Respiratory Distress, Accessory Muscle Use, Wheezes, Rales, Rhonchi Cardiovascular: Present: Regular Rate and Rhythm, Normal S1, S2. No: Murmurs Abdomen: Present: Normal Bowel Sounds. No: Tenderness, Distention, Peritoneal Signs, Rebound Genitourinary Male: Present: Normal External Genitalia, Other (bladder fullness on suprapubic region) Back: Present: Normal Inspection. No: CVA Tenderness Lower Extremity: Present: Normal Inspection, NORMAL PULSES, Normal ROM, Neurovascularly Intact. No: Edema, Tenderness, Swelling, Erythema Neurological: Present: GCS=15, CN II-XII Intact, Speech Normal Skin: Present: Warm, Dry, Normal Color. No: Rashes Psychiatric: Present: Alert, Oriented x 3, Normal Insight, Normal Concentration Medical Decision Making ED Course and Treatment: 09/12/17 Impression: 66 year old male with bladder fullness on suprapubic region Differential Diagnosis included but are not limited to: urinary retention secondary to BPH Plan: -- Labs -- Urinalysis -- Reassess and disposition Progress Notes: 09/12/17 14:42 Pozo was placed by BUTCH Bliss with great Urinary output and immediate relief of patients symptoms. Vitals improved as well and noted. On reevaluation the patient feels better and is in no acute distress. I have discussed the results and plan with the patient, who expresses understanding. Patient given the opportunity to ask question, all questions were answered and there is agreement with the plan to discharge the patient home with antibiotics. Patient is currently asymptomatic and high blood pressure has improved. Patient is stable for discharge. Patient was instructed to follow up with physician/clinic in 1-2 days or return if symptoms persist/worsen or new concerning symptoms arise. Case was discussed with Dr. Armenta, urologist, who recommends Levaquin daily for 5 days and to follow up at his office. Patient was discharge with pozo and leg bag. He has flomax to take at home. - Lab Interpretations Microbiology Results: Microbiology Results 09/12/17 13:20 Urine Urine Culture - Final Pseudomonas Aeruginosa Lab Results: 09/12/17 13:20 09/12/17 13:20 Lab Results 09/12/17 13:20: Sodium 143, Potassium 4.0, Chloride 106, Carbon Dioxide 28, Anion Gap 14, BUN 26 H, Creatinine 1.4, Est GFR ( Amer) > 60, Est GFR ( Non-Af Amer) 51, Random Glucose 118 H, Calcium 9.7 09/12/17 13:20: Urine Color Straw, Urine Appearance Cloudy, Urine pH 6.0, Ur Specific [place] 1.010, Urine Protein Trace H, Urine Glucose (UA) Negative, Urine Ketones Negative, Urine Blood Moderate H, Urine Nitrate Positive H, Urine Bilirubin Negative, Urine Urobilinogen 0.2, Ur Leukocyte Esterase Large H, Urine RBC 0 - 2, Urine WBC Tntc, Ur Epithelial Cells 0 - 2, Urine Bacteria Many 09/12/17 13:20: WBC 11.9 H D, RBC 3.27 L, Hgb 10.2 L, Hct 31.7 L, MCV 96.9, MCH 31.2, MCHC 32.2, RDW 15.0 H, Plt Count 216, MPV 10.3, Gran % 86.3 H, Lymph % ( Auto) 6.3 L, Edwards % (Auto) 6.8 H, Eos % (Auto) 0.4 L, Baso % (Auto) 0.2, Gran # 10.27 H, Lymph # (Auto) 0.8 L, Edwards # (Auto) 0.8 H, Eos # (Auto) 0.1, Baso # ( Auto) 0.02 I have reviewed the lab results: Yes - Medication Orders Current Medication Orders: Discontinued Medications Levofloxacin (Levaquin) 750 mg PO STAT STA Stop: 09/12/17 14:46 Last Admin: 09/12/17 15:04 Dose: 750 mg - Scribe Statement The provider has reviewed the documentation as recorded by the Cait Pena Provider Scribe Attestation: All medical record entries made by the Scribe were at my direction and personally dictated by me. I have reviewed the chart and agree that the record accurately reflects my personal performance of the history, physical exam, medical decision making, and the department course for this patient. I have also personally directed, reviewed, and agree with the discharge instructions and disposition. Disposition/Present on Arrival - Present on Arrival Any Indicators Present on Arrival: Yes History of DVT/PE: Yes History of Uncontrolled Diabetes: No Urinary Catheter: No History of Decub. Ulcer: No History Surgical Site Infection Following: None - Disposition Have Diagnosis and Disposition been Completed?: Yes Diagnosis: Urinary retention Disposition: HOME/ ROUTINE Disposition Time: 15:06 Patient Plan: Discharge Condition: IMPROVED Discharge Instructions (ExitCare): Urinary Retention Additional Instructions: Mr Nathan, thank you for letting us take care of you today. Your provider was Dr. Velazco. You were treated for Urinary Retention, Urinary Tract Infection. The emergency medical care you received today was directed at your acute symptoms. If you were prescribed any medication, please fill it and take as directed. It may take several days for your symptoms to resolve. Return to the Emergency Department if your symptoms worsen, do not improve, or if you have any other problems. Please contact your doctor or call one of the physicians/clinics you have been referred to that are listed on the Patient Visit Information form that is included in your discharge packet. Bring any paperwork you were given at discharge with you along with any medications you are taking to your follow up visit. Our treatment cannot replace ongoing medical care by a primary care provider (PCP) outside of the emergency department. Thank you for allowing the [facility] team to be part of your care today. If you had an X-Ray or CT scan: A Radiologist will review the ED reading if any change in treatment is needed we will contact you. If you had a blood, urine, or wound culture: It will take several days for the results, if any change in treatment is needed we will contact you. If you had an STI test: It will take 48 hours for the results. Please call after 1 week if you have not heard back. Prescriptions: Levofloxacin [Levaquin] 750 mg PO DAILY #5 tablet Referrals: Jef Tripp MD [Primary Care Provider] - Follow up with primary Forms: [employer] ([place]i), WORK NOTE
[2017-09-12 13:57] LABS: BASO # 0.02 K/mm3 (0.0-2.0); BASO % 0.2 % (0.0-3.0); EOS # 0.1 (0.0-0.7); EOS % 0.4 % (1.5-5.0); GRAN # 10.27 (1.4-6.5); GRAN % 86.3 % (50.0-68.0); HEMOGLOBIN 10.2 g/dL (14.0-18.0); LYMPH # 0.8 (1.2-3.4); LYMPH % 6.3 % (22.0-35.0); MEAN CELL VOLUME 96.9 fl (80.0-105.0); MEAN CORPUSCULAR HEMOGLOBIN 31.2 pg (25.0-35.0); MEAN CORPUSCULAR HGB CONC 32.2 g/dl (31.0-37.0); MEAN PLATELET VOLUME 10.3 fl (7.0-11.0); MONO # 0.8 (0.1-0.6); MONO % 6.8 % (1.0-6.0); RBC 3.27 10^6/uL (3.5-6.1); WHITE BLOOD COUNT 11.9 10^3/ul (4.5-11.0)
[2017-09-12 14:07] LABS: BLOOD UREA NITROGEN 26 mg/dL (7-21); CALCIUM 9.7 mg/dL (8.4-10.5); GFR AFRICAN-AMERICAN > 60; GFR NON-AFRICAN AMERICAN 51; URINE BILIRUBIN NEGATIVE (NEGATIVE); URINE BLOOD MODERATE (NEGATIVE); URINE GLUCOSE (UA) NEGATIVE (NEGATIVE); URINE LEUKOCYTE ESTERASE LARGE Leu/uL (NEGATIVE); URINE NITRATE POSITIVE (NEGATIVE); URINE PROTEIN TRACE mg/dL (<30 mg/dL); URINE UROBILINOGEN 0.2 E.U./dL (<1 E.U./dL)
[2017-09-12 14:10] LABS: URINE APPEARANCE CLOUDY (CLEAR); URINE COLOR STRAW (YELLOW)
[2017-09-12 14:23] LABS: URINE BACTERIA MANY (NEG); URINE EPITHELIAL CELLS 0 - 2 /hpf (0-5); URINE RBC 0 - 2 /hpf (0-2); URINE WBC TNTC /hpf (0-6)
[2017-09-12 14:32] VITALS: BP 155/69; PULSE 68; RESP 15
[2017-09-12] MEDS ORDERED: levoFLOXacin 750 MG TAB PO STA (14:45)
--- NOTE | 2017-09-14 14:22 | ED PDOC ---
ED Additional Note - Date & Time of Evaluation Date of Evaluation: 09/14/17 Time of Evaluation: 14:21 - Physician Additional Note Physician Additional Note: Complete, urine culture show +pseudomonas aeruginosa which is sensitive to the fluoroquinolones and he discharge home with the levaquine which is in this class.
== END 2017-09-12 15:06 | disposition home or self-care (01) ==
LOC: ED 12:01
DX: N40.1 Benign prostatic hyperplasia with lower urinary tract symptoms (principal); R33.8 Other retention of urine; I10 Essential (primary) hypertension; Z87.891 Personal history of nicotine dependence

== ENCOUNTER 2017-12-18 10:31 | Emergency (ER) | payer OTHER ==
[2017-12-18 10:31] VITALS: BMI 17.8
[2017-12-18 11:03] VITALS: RESP 18
--- NOTE | 2017-12-18 12:32 | ED PDOC ---
Arrival/HPI - General Chief Complaint: Male Genitourinary Time Seen by Provider: 12/18/17 12:30 Historian: Patient - History of Present Illness Narrative History of Present Illness (Text): 12/18/17 12:32 66 year old male, whose past medical history includes hypertension, gall bladder disease, Urinary retention, and prostate enlargement, who presents to the emergency department complaining of dysuria x 2 days. Patient stated he is concern the length of time that he is using a pozo catheter. He stated he is supposed to have a prostate surgery for BPH. Patient stated he failed a cardiology clearance. He stated Dr. Rodriguez wants him to be admitted into hospital. Patient denies other somatic complains. Time/Duration: Other (see hpi) Context: Home Past Medical History - Provider Review Nursing Documentation Reviewed: Yes - Infectious Disease Hx of Infectious Diseases: None - Cardiac Hx [place]: Yes Hx Hypertension: Yes - Pulmonary Hx Respiratory Disorders: No - Neurological Hx Paralysis: No - HEENT Hx HEENT Disorder: No - Renal Hx Renal Disorder: No Other/Comment: PROSTATE PROBLEM - Hematological/Oncological Hx Blood Transfusions: No - Musculoskeletal/Rheumatological Hx Musculoskeletal Disorders: Yes - Gastrointestinal Hx Gall Bladder Disease: Yes - Genitourinary/Gynecological Hx Prostate Problems: Yes - Psychiatric Hx Substance Use: No - Surgical History Hx Inguinal Hernia Repair: Yes - Anesthesia Hx Anesthesia Reactions: No Hx Malignant Hyperthermia: No Family/Social History Family/Social History: Other (noncontributory) Smoking Status: Former Smoker Hx Alcohol Use: No Hx Substance Use: No Allergies/Home Meds Allergies/Adverse Reactions: Allergies No Known Allergies Allergy (Verified 09/12/17 12:42) Home Medications: Home Meds Medication Instructions Recorded Confirmed Ergocalciferol [Drisdol 50,000 1 cap PO Q2XW 10/22/17 12/18/17 Intl Units Cap] Metoprolol Tartrate [Lopressor] 25 mg PO DAILY 10/22/17 12/18/17 Atorvastatin [Lipitor] 40 mg PO DIN 12/11/17 12/18/17 Review of Systems - Review of Systems Constitutional: Normal. absent: Fatigue, Weight Change, Fevers, Night Sweats Eyes: Normal ENT: Normal Respiratory: Normal Cardiovascular: Normal Gastrointestinal: Normal Genitourinary Male: Dysuria, Other (patient has a urinary pozo catheter) Musculoskeletal: Normal Skin: Normal Neurological: Normal Endocrine: Normal Hemo/Lymphatic: Normal Psychiatric: Normal Physical Exam Vital Signs Temp Pulse Resp BP Pulse Ox 12/18/17 15:19 98 F 65 18 131/69 100 12/18/17 13:00 66 18 135/70 98 12/18/17 11:41 65 18 138/79 98 12/18/17 10:56 98.3 F 60 18 142/84 98 Temperature: Afebrile Blood Pressure: Normal Pulse: Regular Respiratory Rate: Normal Appearance: Positive for: Well-Appearing, Non-Toxic, Comfortable Pain Distress: None Mental Status: Positive for: Alert and Oriented X 3 - Systems Exam Head: Present: Atraumatic, Normocephalic Pupils: Present: PERRL Extroacular Muscles: Present: EOMI Conjunctiva: Present: Normal Mouth: Present: Moist Mucous Membranes Neck: Present: Normal Range of Motion Respiratory/Chest: Present: Clear to Auscultation, Good Air Exchange. No: Respiratory Distress, Accessory Muscle Use Cardiovascular: Present: Regular Rate and Rhythm, Normal S1, S2. No: Murmurs Abdomen: No: Tenderness, Distention, Peritoneal Signs Genitourinary Male: Present: Normal External Genitalia, Circumcised Penis, Other ((+) pozo catheter is in place.). No: Lesions, Penile Discharge, Testicle Tenderness, Penile Swelling, Masses, Erythema, Hernias, Testicle Swelling Back: Present: Normal Inspection Upper Extremity: Present: Normal Inspection. No: Cyanosis, Edema Lower Extremity: Present: Normal Inspection. No: Edema Neurological: Present: GCS=15, CN II-XII Intact, Speech Normal Skin: Present: Warm, Dry, Normal Color. No: Rashes Psychiatric: Present: Alert, Oriented x 3, Normal Insight, Normal Concentration Medical Decision Making ED Course and Treatment: 12/18/17 15:06 I spoke with both Dr. Arce, button maker and installer, and Dr. Rodriguez, PMD regarding patient concern of urinary pozo catheter, and patient needs a cardiac cath. Dr. Arce stated due to patient insurance does not cover cardiac cath in this hospital, Dr. Arce office gave patient a referral to see another button maker and installer which is covered by patient's plan. Dr. rodriguez is aware of this. 12/18/17 15:17 Patient is aware of plan. Re-evaluation Time: 15:06 Reassessment Condition: Re-examined, Improved - Lab Interpretations Lab Results: Lab Results 12/18/17 12:50: Urine Color Yellow, Urine Appearance Sl cloudy, Urine pH 6.0, Ur Specific [place] <= 1.005, Urine Protein Negative, Urine Glucose (UA) Negative, Urine Ketones Negative, Urine Blood Small H, Urine Nitrate Negative, Urine Bilirubin Negative, Urine Urobilinogen 0.2, Ur Leukocyte Esterase Small H , Urine RBC 5 - 10, Urine WBC 5 - 10, Ur Epithelial Cells 0 - 2, Urine Bacteria Many, Urine Other Uyeast I have reviewed the lab results: Yes Interpretation: Abnormal lab values Disposition/Present on Arrival - Present on Arrival Any Indicators Present on Arrival: No History of DVT/PE: Yes History of Uncontrolled Diabetes: No Urinary Catheter: No History of Decub. Ulcer: No History Surgical Site Infection Following: None - Disposition Have Diagnosis and Disposition been Completed?: Yes Diagnosis: Urinary tract infection Disposition: HOME/ ROUTINE Disposition Time: 14:45 Patient Plan: Discharge Condition: GOOD Discharge Instructions (ExitCare): Urinary Tract Infection, Adult (DC) Additional Instructions: Call Dr. Armenta Urologist and Dr. Rodriguez for revaluation in 1-2 days. Take medication as instructed. Return to emergency if symptoms worsen. Prescriptions: Cephalexin [cephalexin] 500 mg PO BID #20 cap Referrals: Conner Arce MD [Primary Care Provider] - Follow up with primary Eder Armenta MD [Staff Provider] - Follow up with primary Jef Rodriguez MD [Staff Provider] - Follow up with primary Forms: [employer] ([place]), WORK NOTE
[2017-12-18 13:07] LABS: URINE BILIRUBIN NEGATIVE (NEGATIVE); URINE BLOOD SMALL (NEGATIVE); URINE GLUCOSE (UA) NEGATIVE (NEGATIVE); URINE LEUKOCYTE ESTERASE SMALL Leu/uL (NEGATIVE); URINE PROTEIN NEGATIVE mg/dL (<30 mg/dL); URINE UROBILINOGEN 0.2 E.U./dL (<1 E.U./dL)
[2017-12-18 13:18] LABS: URINE APPEARANCE SL CLOUDY (CLEAR); URINE COLOR YELLOW (YELLOW)
[2017-12-18 13:23] LABS: URINE BACTERIA MANY (NEG); URINE EPITHELIAL CELLS 0 - 2 /hpf (0-5)
[2017-12-18 15:20] VITALS: BP 131/69; PULSE 65; TEMP 98; O2SAT 100
== END 2017-12-18 15:19 | disposition home or self-care (01) ==
LOC: ED 10:31
DX: N39.0 Urinary tract infection, site not specified (principal)